=== PATIENT | female | born 1945 | race Caucasian/White ===

== ENCOUNTER → 2017-05-23 | Outpatient (CLI) | payer OTHER, MEDICARE | LOC: SBRMNEURO 21:00 | PROVIDERS: ATTEND Psychiatry & Neurology Sleep Medicine | DX: G47.33 Obstructive sleep apnea (adult) (pediatric) (principal); G47.61 Periodic limb movement disorder ==

== ENCOUNTER 2017-06-05 18:05 | Inpatient (IN) | payer OTHER, MEDICARE ==
[2017-06-05] MEDS ORDERED: ONDANSETRON DISINTEGRATING 4 MG TAB PO PRN (18:53)
[2017-06-05] MEDS ORDERED: ONDANSETRON 4 MG/2 ML VIAL IVP PRN (18:53)
[2017-06-05] MEDS ORDERED: NALOXONE HCL 0.4 MG/ML INJ IVP PRN (18:53)
[2017-06-05] MEDS ORDERED: HYDROmorphONE/DILAUDID 1 MG/ML SYR IVP PRN (18:55)
[2017-06-05] MEDS ORDERED: BISACODYL 10 MG SUPP PR PRN (18:56)
[2017-06-05] MEDS ORDERED: LACTULOSE 20 GM/30 ML UDCUP PO PRN (18:56)
[2017-06-05] MEDS ORDERED: POLYETHYLENE GLYCOL 3350 17 GM PKT PO PRN (18:56)
[2017-06-05] MEDS ORDERED: MAGNESIUM HYDROXIDE 30 ML UDCUP PO PRN (18:56)
[2017-06-05] MEDS ORDERED: D5W 1/2 NS W/ 20 KCl/L 1,000 ML IV SCH (19:00)
--- NOTE | 2017-06-05 19:53 | GHP ---
[f rep st] HISTORY AND PHYSICAL DATE OF ADMISSION: 06/05/2017 CHIEF COMPLAINT: Fall from horse. HISTORY OF PRESENT ILLNESS: The patient is a 71-year-old, experienced helmeted horseback rider, who was riding her horse when the horse got spooked. He stopped abruptly and she went over and landed on her right hip. She did not lose consciousness. The pain has improved with Dilaudid. Weightbearing makes the pain worse. She presented to the outside emergency room and x-rays were obtained of her pelvis which showed an acetabular fracture with superior and inferior pubic rami fractures. She was transferred to [facility] at patient preference. PAST MEDICAL HISTORY: Osteoporosis and hypothyroidism. PAST SURGICAL HISTORY: Appendectomy, bilateral hip replacements. SOCIAL HISTORY: She is a very experienced horseback rider and recently returned from [facility] on a horseback trip. She denies tobacco, alcohol, or illegal drug use. FAMILY HISTORY: Significant for coronary artery disease. Her brother of a myocardial infarction at age 55. It is also significant for diabetes, hypertension, hyperlipidemia and dementia. REVIEW OF SYSTEMS: A 10-point review of systems is negative. PHYSICAL EXAM: VITAL SIGNS: Reviewed. GENERAL: A pleasant, well-nourished, well-groomed woman, lying on bed. Appears comfortable. HEENT: Normocephalic. No gross hearing deficits. Mucous membranes moist. Pupils equal and round. No scleral icterus. No otorrhea. No rhinorrhea. Teeth fit together normally. No midface instability. NECK: No cervical spine tenderness. Full range of motion. CHEST: No clavicular or sternal tenderness. LUNGS: Clear to auscultation bilaterally. No increased work of breathing. CARDIAC: Regular rate. No peripheral edema. ABDOMEN: Bowel sounds present. Soft, nontender, nondistended. I examined her for a hernia which she thought she may have noted in the left upper quadrant, and I did not notice any on physical exam. PELVIS: Nontender to palpation at the pubis. She is tender by the right hip. As long as her hip is abducted, she is more comfortable. NEURO: Grossly intact. MUSCULOSKELETAL: 5/5 strength upper and lower extremities with the exception of the right lower leg due to pain. PSYCH: Mood and affect normal. SKIN: No abrasions noted RESULTS REVIEWED: I reviewed her records from the outside hospital. IMPRESSION/PLAN: 1. The patient is a 71-year-old woman, status post fall from horse with acetabular fracture and superior and inferior pubic rami fractures. She is touchdown weightbearing status. She will be kept n.p.o. I have ordered a CT scan of her pelvis with axial, sagittal and 3D reconstruction. I have discussed the case with Dr. Reynolds who will consult. 2. Hypothyroidism. Resume Synthroid. 3. If her abdominal wall hernia becomes more apparent, I will be happy to reexamine her. Otherwise, I instructed her that she can call me after she is done healing from this trauma and I can order an ultrasound of the area. 4. If there are no additional injuries noted, I will contact the hospitalist service to be her primary Service with Dr. Ryenolds as consulting. I will see her tomorrow for a tertiary survey. /[id number]/MODL MTDD
[2017-06-05] MEDS: HYDROmorphONE/DILAUDID 2 MG TAB PO PRN (20:12)
[2017-06-05] MEDS: SENNOSIDES/DOCUSATE SODIUM TAB PO SCH (20:12)
[2017-06-06] MEDS: HYDROmorphONE/DILAUDID 2 MG TAB PO PRN ×5 (02:50→23:56)
[2017-06-06] MEDS: LEVOTHYROXINE 50 MCG TAB PO SCH (05:48)
[2017-06-06 06:01] LABS: % IMMATURE GRANULYOCYTES 0.6 % (0.0-1.1); ABSOLUTE IMMATURE GRANULOCYTES 0.04 10^3/uL (0.00-0.10); ADD DIFF? NO; ADD MORPH? NO; ADD SCAN? NO; ATYPICAL LYMPHOCYTE FLAG 0 (0-99); FRAGMENT RBC FLAG 20 (0-99); HEMATOCRIT 35.3 % (38.0-47.0); HEMOGLOBIN 11.6 g/dL (12.6-16.3); LEFT SHIFT FLG 20 (0-99); LIPEMIA HEMOLYSIS FLAG 80 (0-99); MEAN CELL HEMOGLOBIN 31.4 pg (27.9-34.1); MEAN CELL HEMOGLOBIN CONCENTR. 32.9 g/dL (32.4-36.7); MEAN CELL VOLUME 95.7 fL (81.5-99.8); MEAN PLATELET VOLUME 10.8 fL (8.7-11.7); PLATELET CLUMPS FLAG 10 (0-99); PLATELET COUNT 129 10^3/uL (150-400); RED BLOOD CELL COUNT 3.69 10^6/uL (4.18-5.33); RED CELL DISTRIBUTION WIDTH 13.7 % (11.5-15.2)
--- NOTE | 2017-06-06 06:19 | GCON ---
[f rep st] CONSULTATION DATE OF CONSULTATION: 06/05/2017 CHIEF COMPLAINT: Right hip pain. HISTORY OF PRESENT ILLNESS: The patient is a 71-year-old female who presented to [facility] earlier today after a fall off her horse. Patient states she was riding her horse when she got knocked off, falling onto her right hip. She presented to the [facility] emergency department. X-rays were done and she was found to have a right acetabular fracture as well as superior and inferior pubic rami fractures. Dr Garza from [facility] contacted Dr Reynolds to request transfer, given that the local orthopaedic on-call physician was not comfortable managing this patient's injuries. Dr Reynolds accepted this transfer, and she was transferred to [facility] for further care. Patient states initially her pain was a 10/10 in the right hip and groin but is now well managed and as long as she is lying in bed still, she has no pain. Patient states the pain was mostly in the right groin area, and denies any posterior pain. She has not been up or trying to ambulate since the injury. She denies any numbness, tingling or weakness, no LOC. She does complain of R shoulder pain, aggravated with elevating the RUE, and notes that she did strike this area during the fall. PAST MEDICAL HISTORY: Hypothyroid. PAST SURGICAL HISTORY: L SEB March 2011, R SEB July [address] Gregorio at [facility]. Appy 2007. Pelvis fxs tx'd non-op 2002. MEDICATIONS: Levothyroxine daily. ALLERGIES: No known drug allergies. SOCIAL HISTORY: Patient states she very rarely drinks any alcohol. She denies any tobacco or recreational drug use. She is retired and lives in [place]. FAMILY HISTORY: Patient states there is a history of myocardial infarctions in her father, mother and brother. REVIEW OF SYSTEMS: No other complaints after a 10-point review. PHYSICAL EXAMINATION: GENERAL: The patient is a healthy, well-appearing female. She is alert, active in no acute distress. HEENT: Head is normocephalic, atraumatic. Nose, ears and mouth appear normal. Eye motion is intact. NECK: Normal appearance with midline trachea. Full range of motion, NTTP and no stepoffs posteriorly. Negative Lhermitte's and Spurling. No LAD. LUNGS: Chest motion appears normal. Respirations are nonlabored. MUSCULOSKELETAL: Skin is intact over the right lower extremity and pelvis without any erythema, calor, ecchymosis, or edema. TTP R mary-pelvis near rami and pubis. Pelvic squeeze negative. Patient does not have any tenderness to palpation of the right lower extremity. She has difficulty moving the right hip. Positive log roll and SLR. R knee exam benign w/o lig laxity, effusion, e /e/e/c, FROM. Patient has good strength and range of motion in her ankles and toes bilaterally. She has full range of motion of the left knee and hip. Patient is able to move her bilateral upper extremities without difficulty. She has no tenderness to palpation in the upper extremities. Strength is 5/5 throughout with sensation intact. Distal pulses are 2+. There is capillary refill. Calves are soft, nontender and negative Karri's. DNVI BLEs. SKIN: Please see dictation above, otherwise no other abrasions, erythema or tattoos. NEUROLOGICAL: Nonfocal, no deficits. Cranial nerves II through XII are grossly intact. C5-T1 and L2-S1 intact. PSYCHIATRIC: Affect is normal. A+ OX3. Appropriate mood. SECONDARY SURVEY: Notable for R shoulder pain over her acromion and GT, no e/e/e/c, FROM, 5-/5 RTC strength, +imp maneuvers. Otherwise, negative for any other obvious MSK injuries. RADIOGRAPHIC DATA: Plain XRs from [facility] reviewed by me (Dr Reynolds) prior to transfer, c/w R sided sup/inf rami fxs and darian-prosthetic acetabular fracture, minimal displacement. Hip cup appears well-fixed and in the appropriate position including tilt/anteversion. No obvious posterior ring or iliac fractures. ASSESSMENT AND PLAN: Right PP acetabular fracture as well as superior and inferior pubic rami fractures. Continue NPO. CT scan of the pelvis to further evaluate fractures and prosthetic condition/stability. Once the CT scan is reviewed, overall plan will be finalized, though I believe she will not require any surgical intervention. In the meantime, we will continue conservative care and conservative modalities including rest, ice, as well as pain management. Avoid any NSAIDs or tobacco use. The patient will be touch down weightbearing on the right lower extremity. Positioning for comfort. Patient understands and agrees with treatment plan today and all of her questions have been answered. Case was discussed with Dr. Reynolds, in addition to independent H&P by him, with dx and plan provided by him. Please call with any questions. /[id number]/MODL MTDD
--- NOTE | 2017-06-06 10:18 | TRAUMAPN ---
<Chelle Erickson - Last Filed: 06/06/17 10:18> Assessment/Plan: Pain controlled Waiting for plan from ortho May transition to hospitalist service No new injuries on tertiary exam Seen c Dr. Chris Hernia - order outpatient US. Not appreciated on exam S: right shoulder pain with movement but has FROM. Does not want Xray. complaining of right knee pain O: laying in bed, comfortable, NAD CTAB RRR RUE FROM R knee nontender to palpation, FROM, no swelling or bruising Objective: Vital Signs Temp Pulse Resp BP Pulse Ox 36.4 C 69 16 119/61 98 06/06/17 07:41 06/06/17 07:41 06/06/17 07:41 06/06/17 08:45 06/06/17 07:41 Laboratory Results 06/06/17 04:30 06/05/17 06/06/17 06/07/17 05:59 05:59 05:59 Output Total 350 Balance -350 <Janice Chris S - Last Filed: 06/06/17 14:46> Assessment/Plan: Appreciate Dr. Reynolds. Home when stable. Non op. PT while where Objective: Vital Signs Temp Pulse Resp BP Pulse Ox 36.6 C 69 18 113/73 93 06/06/17 11:46 06/06/17 07:41 06/06/17 11:46 06/06/17 11:46 06/06/17 11:46 Laboratory Results 06/06/17 04:30 06/05/17 06/06/17 06/07/17 05:59 05:59 05:59 Intake Total 240 Output Total 350 Balance -350 240 Physical Exam - Physical Exam General Appearance: WD/WN, alert, no apparent distress EENT: PERRL/EOMI, normal ENT inspection, No scleral icterus (R), No scleral icterus (L), No hearing deficit Neck: non-tender, full range of motion Respiratory: chest non-tender, lungs clear, normal breath sounds Cardiac/Chest: regular rate, rhythm, No edema Abdomen: normal bowel sounds, non-tender, soft Skin: normal color, warm/dry Extremities: other (pain right hip. Knee non tender to palpation. Full range of motion r shoulder) Neuro/Psych: no motor/sensory deficits, alert, normal mood/affect
[2017-06-06] MEDS: SENNOSIDES/DOCUSATE SODIUM TAB PO SCH ×2 (10:27→19:40)
[2017-06-06] MEDS: ENOXAPARIN 40 MG/0.4 ML SYR SC SCH (10:27)
--- NOTE | 2017-06-06 13:08 | SOAPPROG ---
SOAP Progress Note Assessment/Plan: Assessment: R PP acetabular fracture w/ stable SEB components, sup/inf rami fxs , poss subtle, non-displaced R sided sac ala fx. Plan: Non-op care with TDWB RLE, PT/OT, assist devices prn, no smoking/NSAIDs, PO analgesics prn, knee high TEDs/SCDs BLEs, chemo-proph per primary team. R shoulder XRs ordered. Repeat plain pelvis XRs after pt is up and ambulating more frequently. Dispo home with HHC, poss SNF need. F/u with me in clinic in 7-10 days for out-pt care. Please call with any questions. 06/06/17 13:04 06/06/17 13:08 Subjective: Doing well, pain controlled. OOB today with PT/OT, who believe she will do very well with precautions and mob. Objective: Vital Signs Temp Pulse Resp BP Pulse Ox 36.6 C 69 18 113/73 93 06/06/17 11:46 06/06/17 07:41 06/06/17 11:46 06/06/17 11:46 06/06/17 11:46 Laboratory Results 06/06/17 04:30 06/05/17 06/06/17 06/07/17 05:59 05:59 05:59 Intake Total 240 Output Total 350 Balance -350 240 No e/e/e/c, TTP R side pelvis anterior, no posterior TTP. Shuck neg. +logroll and SLR. ROM 0-90. BLEs neg Karri's, no edema or TTP. DNVI BLEs. R shoulder FROM, cont'd pain over acromion and GT. +imp findings. DNVI BUEs. No new findings on 2nd survey. CT - R PP tab fx with well-fixed/stable cup (SEB), R sup/inf rami fxs, poss non- disp'd R sac ala fx, all min displaced. ICD10 Worksheet Patient Problems: Problems Problem Status Onset Fracture of superior pubic ramus Acute Inferior pubic ramus fracture Acute Right acetabular fracture Acute
[2017-06-07] MEDS: HYDROmorphONE/DILAUDID 2 MG TAB PO PRN ×4 (04:30→23:56)
[2017-06-07] MEDS: LEVOTHYROXINE 50 MCG TAB PO SCH (04:31)
--- NOTE | 2017-06-07 07:57 | SOAPPROG ---
SOAP Progress Note Assessment/Plan: Assessment: Right Acetabular fracture of periprosthetic total hip and superior and inferior pubic rami fractures Plan: CT scan reviewed by Dr. Reynolds and fractures are non op TDWB RLE - assistive device Rest, ice CELI's/SCD's Chemo proph per primary team Pain meds prn Ortho Stable Subjective: 71 year old female who is out of bed in a chair and states his right pelvis/hip pain is controlled. Patient is stable. Objective: Vital Signs Temp Pulse Resp BP Pulse Ox 37.0 C 74 18 134/72 H 98 06/07/17 07:48 06/07/17 07:48 06/07/17 07:48 06/07/17 07:48 06/07/17 07:48 Laboratory Results 06/06/17 04:30 06/06/17 06/07/17 06/08/17 05:59 05:59 05:59 Intake Total 740 Output Total 350 150 Balance -350 740 -150 Physical exam: No e/e/e/c, TTP R side pelvis anterior, no posterior TTP. Shuck neg. +logroll and SLR. ROM 0-90. BLEs neg Karri's, no edema or TTP. DNVI BLEs. DNVI BUEs. No new findings on 2nd survey. ICD10 Worksheet Patient Problems: Problems Problem Status Onset Fracture of superior pubic ramus Acute Inferior pubic ramus fracture Acute Right acetabular fracture Acute - ICD10 Problem Qualifiers (1) Fracture of superior pubic ramus (2) Inferior pubic ramus fracture (3) Right acetabular fracture
[2017-06-07] MEDS: ACETAMINOPHEN 325 MG TAB PO PRN ×2 (10:05→16:20)
[2017-06-07] MEDS: ENOXAPARIN 40 MG/0.4 ML SYR SC SCH (10:08)
[2017-06-07] MEDS: SENNOSIDES/DOCUSATE SODIUM TAB PO SCH ×2 (10:08→19:41)
--- NOTE | 2017-06-07 12:37 | TRAUMAPN ---
Assessment/Plan: 71yo F s/p fall from a horse sustaining acetabular fracture and superior and inferior pubic rami fractures. Non op. On tertiary survey today c/o right shoulder and right knee pain. Ordered XR of both. Appreciate Dr. Reynolds Touchdown WB Pain control PT/OT Seen with Dr. العراقي Dispo: likely tomorrow with homecare per PT recs S: C/o right shoulder and right knee pain and does want imaging performed. Discussed discharge plan, she would like to stay until tomorrow and go home with home help at that time. Pain controlled. O: In wheelchair returning from PT/OT evaluation NAD, comfortable Lungs CTAB, no increased WOB RRR MMM Painful and therefore limited ROM of right knee and right shoulder. Minimal edema. nontender TTP. No ecchymosis present. Objective: Vital Signs Temp Pulse Resp BP Pulse Ox 37.0 C 74 18 134/72 H 98 06/07/17 07:48 06/07/17 07:48 06/07/17 07:48 06/07/17 07:48 06/07/17 07:48 Laboratory Results 06/06/17 04:30 06/06/17 06/07/17 06/08/17 05:59 05:59 05:59 Intake Total 740 Output Total 350 350 Balance -350 740 -350
--- NOTE | 2017-06-07 15:09 | SOAPPROG ---
SOAP Progress Note Assessment/Plan: Assessment: R PP acetabular fracture w/ stable SEB components, sup/inf rami fxs , poss subtle, non-displaced R sided sac ala fx. R shoulder/knee pain not concerning for any significant acute bone/joint trauma. Plan: Non-op care with TDWB RLE, PT/OT, assist devices prn, no smoking/NSAIDs, PO analgesics prn, knee high TEDs/SCDs BLEs, VTE chemoprophylaxis per primary team. Repeat plain pelvis XRs after pt is up and ambulating more frequently. Will reassess R knee/shoulder in out-pt setting for dx's such as RCT. Dispo home with HHC, poss SNF need. F/u with me in approx 1 week. Please call with any questions. 06/07/17 15:07 Subjective: Pain much improved overall. Mob'ing well. Objective: Vital Signs Temp Pulse Resp BP Pulse Ox 37.0 C 74 18 134/72 H 98 06/07/17 07:48 06/07/17 07:48 06/07/17 07:48 06/07/17 07:48 06/07/17 07:48 Laboratory Results 06/06/17 04:30 06/06/17 06/07/17 06/08/17 05:59 05:59 05:59 Intake Total 740 Output Total 350 350 Balance -350 740 -350 R hip exam -logroll, +SLR. ROM 0-90 w/o sig pain. Pelvic sq test neg. No post TTP. No edema, TTP, neg Karri's BLEs. DNVI BLEs. R shoulder/knee exams benign. R shoulder and knee XRs w/o any obvious acute bone/joint injuries. ICD10 Worksheet Patient Problems: Problems Problem Status Onset Fracture of superior pubic ramus Acute Inferior pubic ramus fracture Acute Right acetabular fracture Acute
[2017-06-07 15:42] VITALS: O2SAT 95
[2017-06-08] MEDS: ACETAMINOPHEN 325 MG TAB PO PRN ×2 (03:50→10:21)
[2017-06-08] MEDS: LEVOTHYROXINE 50 MCG TAB PO SCH (04:31)
[2017-06-08] MEDS: HYDROmorphONE/DILAUDID 2 MG TAB PO PRN (04:31)
--- NOTE | 2017-06-08 08:20 | SOAPPROG ---
SOAP Progress Note Assessment/Plan: Assessment: Right Acetabular fracture of periprosthetic total hip and superior and inferior pubic rami fractures Plan: Non op care with TDWB RLE - assistive device No smoking/NSAID's Rest, ice CELI's/SCD's Chemo proph per primary team Pain meds prn Will reassess R knee/shoulder in out-pt setting for dx's such as RCT. Dispo home with HHC, poss SNF need. F/u with me in approx 1 week. Please call with any questions. Ortho Stable. Subjective: 71 year old female reports her right pelvis/hip pain is less bothersome and controlled. Patient is stable. Objective: Vital Signs Temp Pulse Resp BP Pulse Ox 37.1 C 69 18 150/82 H 95 06/07/17 23:14 06/07/17 23:14 06/07/17 23:14 06/07/17 23:14 06/07/17 23:14 Laboratory Results 06/06/17 04:30 06/07/17 06/08/17 06/09/17 05:59 05:59 05:59 Intake Total 740 1750 Output Total 550 Balance 740 1200 Physical exam: R hip exam -logroll, +SLR. ROM 0-90 w/o sig pain. Pelvic sq test neg. No post TTP. No edema, TTP, neg Karri's BLEs. DNVI BLEs. R shoulder/knee exams benign. ICD10 Worksheet Patient Problems: Problems Problem Status Onset Fracture of superior pubic ramus Acute Inferior pubic ramus fracture Acute Right acetabular fracture Acute - ICD10 Problem Qualifiers (1) Fracture of superior pubic ramus (2) Inferior pubic ramus fracture (3) Right acetabular fracture
[2017-06-08 08:21] VITALS: BP 134/79; PULSE 70; RESP 14; TEMP 98
--- NOTE | 2017-06-08 09:01 | TRAUMAPN ---
Assessment/Plan: 71yo F s/p fall from horse c acetabular fx, rami fx - Doing well with WBAT precautions. Pain controlled on oral narcotics. Will discuss with PT/OT but previous recs were for home with HH. Planning dc later today Subjective: Doing well, got behind on pain control overnight but much better this AM Objective: Vital Signs Temp Pulse Resp BP Pulse Ox 36.6 C 70 14 134/79 H 95 06/08/17 08:19 06/08/17 08:19 06/08/17 08:19 06/08/17 08:19 06/07/17 23:14 Laboratory Results 06/06/17 04:30 06/07/17 06/08/17 06/09/17 05:59 05:59 05:59 Intake Total 740 1750 Output Total 550 Balance 740 1200
[2017-06-08] MEDS: ENOXAPARIN 40 MG/0.4 ML SYR SC SCH (10:23)
[2017-06-08] MEDS: SENNOSIDES/DOCUSATE SODIUM TAB PO SCH (10:26)
--- NOTE | 2017-06-08 13:43 | PDIAF ---
- Diagnosis Diagnosis: Fall with acetabular and pubic rami fx Code Status: Full Code - Medication Management Discharge Medications: Medications to Continue on Transfer Herbals/Supplements -Info Only 1 ea PO DAILY 06/05/17 [Last Taken Unknown] Levothyroxine Sodium 50 mcg PO DAILY@06/05/17 [Last Taken 06/05/17] HYDROmorphone HCL [Dilaudid 2 mg (*)] 2 - 4 mg PO Q4HRS PRN #20 tab 06/08/17 [ Last Taken Unknown] Discharge Medications: Refer to the Discharge Home Medication list for PRN reason. - Orders Services needed: Physical Therapy, Occupational Therapy Diet Recommendation: no restrictions on diet Diet Texture: Regular Texture Diet - Follow Up Care Current Providers and Referrals: Stone Reynolds MD [Medical Doctor] - follow up in 10 days (7-10 days. call for appt.) Patient,NotPresent [Unknown] -
--- NOTE | 2017-06-10 17:06 | ASDISCHSUM ---
Discharge Information Plan Status:Home with Home Health Medically Cleared to Leave: Discharge Date:06/08/2017 02:28 PM CM D/C Disposition:Home Health Service ADT D/C Disposition:[id number] Projected Discharge Date:06/08/2017 02:28 PM Transportation at D/C: Discharge Delay Reason: Follow-Up Date:06/08/2017 02:28 PM Discharge Slot: Final Diagnosis: Placement Information Patient Contact Information Contact Name:LEATHA Relationship:Daren Address:[address] Work Phone: City:[place] Alternate Phone: State/Zip Code:[place] [address] Email: Financial Information Financial Class: Primary Plan Desc:MEDICARE INPATIENT Primary Plan Number:[id number] Secondary Plan Desc:[employer]/M[employer] SUPPLEMENT Secondary Plan Number:[id number] Assessment Information [facility] CM Progress Note CM Note CM Note Notes: Late entry due to [employer] down time: 06/06/17 OT rec home, PT rec HHC vs. outpatient. Spoke w pt who thinks she will be able to d/c without any services, she will discuss HHC w [facility]. CM to follow. Date Signed: 06/07/2017 03:28 PM Electronically Signed By:Jacki Ibrahim [facility] CM Progress Note CM Note CM Note Notes: Pt medically stable for d/c. PT/OT continue to rec HHC, pt agreeable and choses [facility]. Date Signed: 06/08/2017 02:15 PM Electronically Signed By:Jacki Ibrahim Intervention Information Intervention Type:*IRIZARRY-Signed Date of Service:06/06/2017 10:38 AM Patient Type:Observation Staff Member:Destini Antoine Hours: Discipline: Severity: Comment: Intervention Type:*IM-Signed Date of Service:06/08/2017 11:41 AM Patient Type:Inpatient Staff Member:Destini Antoine Hours: Discipline: Severity: Comment:
--- NOTE | 2017-06-10 17:07 | ASMTCMCOM ---
CM Note CM Note Notes: Pt medically stable for d/c. PT/OT continue to rec HHC, pt agreeable and choses [facility]. Date Signed: 06/08/2017 02:15 PM Electronically Signed By:Jacki Ibrahim
== END 2017-06-08 14:28 | disposition home health service (06) | DRG 536 ==
LOC: F3N 18:05 → OBSVTOIN 06-06 14:00
PROVIDERS: ADMIT Surgery; ATTEND Surgery
DX: S32.401A Unspecified fracture of right acetabulum, initial encounter for closed fracture (principal); S32.19XA Other fracture of sacrum, initial encounter for closed fracture; S32.501A Unspecified fracture of right pubis, initial encounter for closed fracture; V80.010A Animal-rider injured by fall from or being thrown from horse in noncollision accident, initial encounter; Y93.52 Activity, horseback riding; E03.9 Hypothyroidism, unspecified; M81.0 Age-related osteoporosis without current pathological fracture; Z96.643 Presence of artificial hip joint, bilateral
CPT/HCPCS: 97116-GP; 97161-GP; 97165-GO; 97535-GO; G0378; G8978-GP-CJ; G8979-GP-CI; G8987-GO-CM; G8988-GO-CI; G8989-GO-CI; J1650

== ENCOUNTER → 2018-02-07 | Outpatient (CLI) | payer OTHER, MEDICARE | LOC: FCPNEURO 20:00 | PROVIDERS: ATTEND Psychiatry & Neurology Sleep Medicine | DX: G47.31 Primary central sleep apnea (principal); G47.61 Periodic limb movement disorder ==